=== PATIENT | male | born 1970 | race Caucasian/White ===

== ENCOUNTER 2022-09-22 16:49 | Inpatient (IN) | payer OTHER ==
[~2022-09-22] VITALS: Ht 167.6 cm; Wt 83.9 kg
[2022-09-22 16:55] VITALS: BP 181/135
--- NOTE | 2022-09-22 17:05 | NUR ---
52/M BIBA FROM HOME. PER EMS PATIENTS FAMILY CALLED 911 STATING PATIENT WAS "ROLLING ON THE GROUND" C/O ABDOMINAL PAIN. PER FAMILY AND PATIENT, HE HAS BEEN BINGE DRINKING THE PAST WEEK. DENIES N/V/D, BLOOD IN STOOLS.
[2022-09-22] MEDS ORDERED: ONDANSETRON 4 MG/2 ML VIAL IVP ONE (17:25)
[2022-09-22] MEDS ORDERED: MORPHINE SULFATE 4 MG/ML SYR IVP ONE (17:25)
[2022-09-22] MEDS ORDERED: NACL 0.9% 1,000 ML IV ONE (17:25)
[2022-09-22] MEDS ORDERED: amLODIPine 5 MG TAB PO ONE (18:15)
[2022-09-22 18:19] LABS: BASOPHILS % (AUTO) 0.4 % (0.0-2.0); EOSINOPHILS % (AUTO) 0.1 % (0.0-4.0); HEMATOCRIT 49.2 % (36-52); LYMPHOCYTES % (AUTO) 24.2 % (20.5-51.1); MEAN CORPUSCULAR HEMOGLOBIN 31 pg (27-31); MEAN CORPUSCULAR HGB CONC 35 g/dL (33-37); MEAN CORPUSCULAR VOLUME 88.8 fL (80-94); MONOCYTES # (AUTO) 0.6 K/uL (0.8-1.0); MONOCYTES % (AUTO) 6.7 % (1.7-9.3); NEUTROPHILS # (AUTO) 5.8 K/uL (1.8-7.7); NEUTROPHILS % (AUTO) 68.6 % (42.2-75.2); PLATELET COUNT (AUTO) 112 K/uL (140-450); RED BLOOD CELL COUNT(AUTO) 5.54 MIL/uL (4.20-6.10); RED CELL DISTRIBUTION WIDTH 14.2 % (11.6-13.7); WHITE BLOOD COUNT (AUTO) 8.4 K/uL (4.8-10.8)
--- NOTE | 2022-09-22 18:21 | NUR ---
AEROSPACE MEDICINE PHYSICIAN AT BEDSIDE
--- NOTE | 2022-09-22 18:24 | NUR ---
PATIENTS BP 202/123, DR. MARCUS MADE AWARE. GIVEN ORDER FOR 5MG AMLODIPINE PO.
[2022-09-22 18:30] LABS: ACETONE, SERUM NEGATIVE (NEGATIVE)
[2022-09-22 18:40] LABS: ALBUMIN 3.9 g/dL (3.4-5.0); ANION GAP 13.9 (8-16); ASPARTATE AMINOTRANSFERASE 108 U/L (15-37); CARBON DIOXIDE 26.9 mmol/L (21-32); CHLORIDE 104 mmol/L (98-107); GFR ARICAN-AMERICAN 101 mL/min (>90); GLUCOSE 173 mg/dL (74-106); LIPASE 220 U/L (73-393); MAGNESIUM 2.2 mg/dL (1.8-2.4); PHOSPHORUS 3.3 mg/dL (2.5-4.9); SODIUM SERUM 142 mmol/L (136-145); TOTAL BILIRUBIN 0.7 mg/dL (0.0-1.0); UREA NITROGEN, BLOOD 10 mg/dL (7-18)
[2022-09-22 18:44] LABS: POTASSIUM 2.8 mmol/L (3.5-5.1)
[2022-09-22] MEDS ORDERED: POTASSIUM CHLORIDE 10 MEQ TABER PO ONE (18:50)
[2022-09-22] MEDS ORDERED: ASPIRIN 81 MG TAB.CHEW PO ONE (18:50)
[2022-09-22] MEDS ORDERED: KCL 20 MEQ IN 100 mL PREMIX 100 ML IV ONE (18:50)
--- NOTE | 2022-09-22 19:05 | NUR ---
PATIENT TAKEN TO CT VIA ANNETTA
--- NOTE | 2022-09-22 19:24 | NUR ---
Pt report given to ALEJANDRINA KAUR. Transfer of care at this time.
[2022-09-22] MEDS ORDERED: NITROGLYCERIN 50 MG/D5W PREMIX 250 ML IV ONE (19:45)
[2022-09-22] MEDS ORDERED: DOCUSATE SODIUM 100 MG GELCAP PO PRN (20:35)
[2022-09-22] MEDS ORDERED: MAG SULF 2000 MG/WATER PREMIX 50 ML IV PRN (20:35)
[2022-09-22] MEDS ORDERED: ZOLPIDEM 10 MG TAB PO PRN (20:35)
[2022-09-22] MEDS ORDERED: ONDANSETRON 4 MG/2 ML VIAL IVP PRN (20:35)
[2022-09-22] MEDS ORDERED: LORazepam 2 MG/ML VIAL IVP PRN (20:35)
[2022-09-22] MEDS ORDERED: LOVENOX 1MG/KG Q12H SUBQ SCH (20:40)
[2022-09-22] MEDS ORDERED: PIPERACILLIN/TAZOBACTAM 3.375 GM in DEXTROSE 5% 50 ML IV SCH (20:40)
--- NOTE | 2022-09-22 20:44 | NUR ---
AARON SWAB OBTAINED AND SENT TO LAB
[2022-09-22] MEDS ORDERED: hydrALAZINE 20 MG/ML VIAL IVP PRN (20:45)
[2022-09-22] MEDS ORDERED: ENOXAPARIN 80 MG/0.8 ML SYR SUBQ SCH (21:40)
--- NOTE | 2022-09-22 21:45 | NUR ---
REPORT CALLED TO SHAHID BOSS
--- NOTE | 2022-09-22 21:45 | NUR ---
AMBULATED TO WITH STEADY GAIT, BACK TO BED AND MADE COMFORTABLE
--- NOTE | 2022-09-22 22:08 | NUR ---
TRANSFERED TO ICU VIA GURNEY. NTG GTT CONTINUES AT 5MCG/ MIN. ATTACHED TO METAL DRILL OPERATOR, ACCOMPANIED BY RN AND INTEGRATED PEST MANAGEMENT TECHNICIAN.
[2022-09-22 22:40] VITALS: BP 190/120
[2022-09-22 23:00] VITALS: BP 162/101
[2022-09-23] VITALS (19 sets, daily range): BP systolic 124–176; BP diastolic 75–111
[2022-09-23] MEDS ORDERED: PIPERACILLIN/TAZOBACTAM 3.375 GM VIAL IV ONE (00:27)
[2022-09-23] MEDS ORDERED: PIPERACILLIN/TAZOBACTAM 3.375 GM in DEXTROSE 5% 50 ML IV SCH (00:55)
[2022-09-23] MEDS: NITROGLYCERIN 50 MG/D5W PREMIX 250 ML IV PRN ×2 (01:15→18:27)
[2022-09-23] MEDS: MORPHINE SULFATE 2 MG/ML SYR IVP PRN ×3 (01:20→23:29)
[2022-09-23 05:56] LABS: BASOPHILS % (AUTO) 0.5 % (0.0-2.0); EOSINOPHILS % (AUTO) 0.2 % (0.0-4.0); HEMOGLOBIN 15.1 g/dL (12.0-18.0); LYMPHOCYTES # (AUTO) 1.6 K/uL (2.0-11.5); LYMPHOCYTES % (AUTO) 23.9 % (20.5-51.1); MEAN CORPUSCULAR HEMOGLOBIN 31 pg (27-31); MEAN CORPUSCULAR HGB CONC 34 g/dL (33-37); MEAN CORPUSCULAR VOLUME 89.8 fL (80-94); MONOCYTES # (AUTO) 0.5 K/uL (0.8-1.0); MONOCYTES % (AUTO) 7.9 % (1.7-9.3); NEUTROPHILS # (AUTO) 4.4 K/uL (1.8-7.7); NEUTROPHILS % (AUTO) 67.5 % (42.2-75.2); PLATELET COUNT (AUTO) 103 K/uL (140-450); RED CELL DISTRIBUTION WIDTH 13.7 % (11.6-13.7); WHITE BLOOD COUNT (AUTO) 6.6 K/uL (4.8-10.8)
[2022-09-23 05:59] LABS: ANION GAP 14.8 (8-16); CARBON DIOXIDE 24.5 mmol/L (21-32); CREATININE 0.9 mg/dL (0.6-1.3); POTASSIUM 3.3 mmol/L (3.5-5.1)
[2022-09-23] MEDS: lisinopriL 20 MG TAB PO SCH (09:06)
[2022-09-23] MEDS: ASPIRIN 81 MG TAB.CHEW PO SCH (09:06)
[2022-09-23] MEDS: PANTOPRAZOLE 40 MG INJ VIAL IVP SCH (09:06)
--- NOTE | 2022-09-23 09:11 | NUR ---
PATIENT HAS BEEN SCREENED AND CATEGORIZED MODERATE NUTRITION RISK. PATIENT WILL BE SEEN WITHIN 3-5 DAYS OF ADMISSION. /10/16 REVIEWED BY JUANCARLOS GONZALEZ RD
[2022-09-23] MEDS ORDERED: ENOXAPARIN 80 MG/0.8 ML SYR SUBQ SCH (09:30)
--- NOTE | 2022-09-23 10:16 | NUR ---
pt endorsed to dia freitas. pt stable
--- NOTE | 2022-09-23 11:05 | NUR ---
A/OX4 VSS APPEARS TO BE IN NO ACUTE DISTRESS NOTED AT THIS TIME, CONTINUE ON NITROGLYCERIN DRIP
--- NOTE | 2022-09-23 12:00 | NUR ---
C/O CHEST PAIN 8/10 FEEL VERY HEAHY ON HIS CHEST.MORPHINE SULFATE GAVE ORDER.
--- NOTE | 2022-09-23 14:38 | NUR ---
DC PLANNING ADMITTED A 52 YEAR OLD MALE PATIENT FOR COMPLAINT OF ABDOMINAL PAIN AND DIARRHEA AFTER BINGE DRINKING FOR 3-5 DAYS.CT ABDOMEN/PELVIS REQUESTED AND SHOWED SUSPECTED ENTEROCOLITIS .TROPONIN LEVEL IS HIGH SUGGESTIVE OF NSTEMI.NITROGLYCERIN DRIP WAS STARTED IN ER.CARDIO TO FOLLOW.TENTATIVE DC PLAN WHEN PATIENT RESPONDS TO TX,CM TO FOLLOW Addendum: 09/26/22 at 1248 by OPHELIA RIDER CM DC PLANNING PATIENT IS FOR TRANSFER TO HIGHER LEVEL OF CARE.SPOKE WITH DR.Y ZAPATA.PATIENT NEEDS TO HAVE A CARDIAC CATH. PATIENT ADVISED OF THE PLAN FOR TRANSFER AND ABOVE PROCEDURE.INITIALLY SCHEDULED AT 3PM BUT THERE'S NO ICU BED AT [facility]. TRANSFER TO BE DONE AT 7:30AM 09/27/22 .PROCEDURE RESCHEDULED AT 9A.ICU CHARGE NURSE INFORMED OF PLAN CHANGE. NOTIFIED BY RUTH MAHAN.NTG DRIP TO BE DISCONTINUED PRIOR TO DC .NTG PATCH TO BE APPLIED PER CARDIOLOGY.CM TO FOLLOW. Addendum: 09/26/22 at 1558 by Priscilla Wong RN DC PLANNING: PER DR BENNY Lange TO STOP THE NITRO DRIP AND TO START NITRO PATCH AT 7AM ON 09/27/22 ORDERED NITRO 0.1MG TOPICAL AND NOTIFIED ICU CHARGE NURSE NENA TO FOLLOW
[2022-09-23] MEDS ORDERED: hydrALAZINE 20 MG/ML VIAL IVP PRN (16:35)
[2022-09-23] MEDS: ACETAMINOPHEN 325 MG TAB PO PRN (16:51)
[2022-09-23] MEDS: carvediloL 12.5 MG TAB PO SCH ×2 (16:53→20:49)
--- NOTE | 2022-09-23 19:20 | NUR ---
RECEIVED ENDORSEMENT FROM PREVIOUS SHIFT RN DEBBIE THAT THIS PATIENT IS FOR TRANSFER TO HIGHER LEVEL OF CARE FOR POSSIBLE CARDIAC CATH.
--- NOTE | 2022-09-23 20:30 | NUR ---
NDT INSPECTOR BERTIN WAS INFORMED AND AWARE OF PATIENT'S PLAN TO TRANSFER FOR HIGHER LEVEL OF CARE ORDERED BY ROLLER MILL OPERATOR DR. HEWITT; ADVISED BY HS TO CALL [facility] [place] [place] [facility].
[2022-09-23] MEDS: ENOXAPARIN 80 MG/0.8 ML SYR SUBQ SCH (20:46)
--- NOTE | 2022-09-23 21:05 | NUR ---
CALLED [facility] FOR PATIENT TO TRANSFER THERE FOR POSSIBLE CARDIAC CATH.; PATIENT'S DETAILED INFORMATION GIVEN AND WAS ADVISED BY ERIKA OF [facility] TO FAXED PATIENT'S DETAILED INFORMATION.
--- NOTE | 2022-09-23 21:32 | NUR ---
PATIENT'S DETAILED INFORMATION FAXED TO [facility].
[2022-09-23] MEDS: POTASSIUM CHLORIDE 10 MEQ TABER PO PRN (23:03)
[2022-09-24] VITALS (24 sets, daily range): BP systolic 116–165; BP diastolic 65–111
[2022-09-24 05:33] LABS: BASOPHILS % (AUTO) 0.3 % (0.0-2.0); EOSINOPHILS % (AUTO) 0.3 % (0.0-4.0); HEMATOCRIT 39.9 % (36-52); HEMOGLOBIN 13.8 g/dL (12.0-18.0); LYMPHOCYTES # (AUTO) 1.6 K/uL (2.0-11.5); LYMPHOCYTES % (AUTO) 21.6 % (20.5-51.1); MEAN CORPUSCULAR HEMOGLOBIN 31 pg (27-31); MEAN CORPUSCULAR HGB CONC 35 g/dL (33-37); MEAN CORPUSCULAR VOLUME 90.2 fL (80-94); MONOCYTES # (AUTO) 0.6 K/uL (0.8-1.0); MONOCYTES % (AUTO) 8.8 % (1.7-9.3); PLATELET COUNT (AUTO) 75 K/uL (140-450); RED BLOOD CELL COUNT(AUTO) 4.43 MIL/uL (4.20-6.10); RED CELL DISTRIBUTION WIDTH 13.6 % (11.6-13.7); WHITE BLOOD COUNT (AUTO) 7.2 K/uL (4.8-10.8)
[2022-09-24 05:59] LABS: ANION GAP 7.9 (8-16); CREATININE 0.9 mg/dL (0.6-1.3); POTASSIUM 3.9 mmol/L (3.5-5.1)
--- NOTE | 2022-09-24 07:15 | NUR ---
RECEIVED BEDSIDE REPORT FROM GOODWILL AMBASSADOR RN FOR CONTINUITY OF CARE. PT A/OX4, ABLE TO FOLLOW COMMANDS. ROOM AIR. NO RESPIRATORY DISTRESS NOTED. SR ON MONITOR. 22G IV TO R FA SALINE LOCK. 20G IV TO LAC INFUSING NITROGLYCERIN DRIP AT 50 MCG/MIN AND NS TKO 5 ML/HR. NO EDEMA NOTED. NO COMPLAINTS OF CHEST PAIN AT THIS TIME. BOWEL SOUNDS ACTIVE. VOIDS FREELY TO URINAL. CONTINENT OF BOWEL AND BLADDER. MILD WEAKNESS THROUGHOUT. R SIDE DEFICIT D/T PRIOR STROKE. STANDARD PRECAUTION.
[2022-09-24] MEDS: ENOXAPARIN 80 MG/0.8 ML SYR SUBQ SCH ×2 (07:56→20:37)
[2022-09-24] MEDS: carvediloL 12.5 MG TAB PO SCH ×2 (08:07→20:37)
[2022-09-24] MEDS: ASPIRIN 81 MG TAB.CHEW PO SCH (08:07)
[2022-09-24] MEDS: PANTOPRAZOLE 40 MG INJ VIAL IVP SCH (08:08)
[2022-09-24] MEDS: ATORVASTATIN 80 MG TAB PO SCH (08:08)
[2022-09-24] MEDS: lisinopriL 20 MG TAB PO SCH ×2 (08:08→20:37)
--- NOTE | 2022-09-24 09:22 | NUR ---
SEEN AND EXAMINED BY DR. WEATHERS. NO NEW ORDERS.
[2022-09-24] MEDS: ACETAMINOPHEN 325 MG TAB PO PRN (10:32)
[2022-09-24] MEDS: NITROGLYCERIN 50 MG/D5W PREMIX 250 ML IV PRN (10:33)
--- NOTE | 2022-09-24 10:58 | NUR ---
Spoke to Rachid at [facility] center and gave updates. Per Rachid, no ICU available at this time and will continue to follow up. Phone number: .
--- NOTE | 2022-09-24 12:26 | NUR ---
Contacted Dr. Calderon regarding recent troponin level and update on transfer.
--- NOTE | 2022-09-24 19:25 | NUR ---
ENDORSED BEDSIDE REPORT TO KARYN, ELECTRICAL CONTRACTOR RN, FOR CONTINUITY OF CARE.
[2022-09-25] VITALS (24 sets, daily range): BP systolic 111–167; BP diastolic 64–109
[2022-09-25] MEDS: NITROGLYCERIN 50 MG/D5W PREMIX 250 ML IV PRN ×2 (01:10→18:18)
[2022-09-25 06:10] LABS: BASOPHILS % (AUTO) 0.3 % (0.0-2.0); EOSINOPHILS % (AUTO) 0.4 % (0.0-4.0); HEMATOCRIT 39.6 % (36-52); HEMOGLOBIN 13.6 g/dL (12.0-18.0); LYMPHOCYTES # (AUTO) 1.2 K/uL (2.0-11.5); LYMPHOCYTES % (AUTO) 16.8 % (20.5-51.1); MEAN CORPUSCULAR HEMOGLOBIN 31 pg (27-31); MEAN CORPUSCULAR HGB CONC 34 g/dL (33-37); MONOCYTES # (AUTO) 0.5 K/uL (0.8-1.0); MONOCYTES % (AUTO) 6.7 % (1.7-9.3); NEUTROPHILS # (AUTO) 5.2 K/uL (1.8-7.7); NEUTROPHILS % (AUTO) 75.8 % (42.2-75.2); PLATELET COUNT (AUTO) 75 K/uL (140-450); RED CELL DISTRIBUTION WIDTH 13.6 % (11.6-13.7); WHITE BLOOD COUNT (AUTO) 6.9 K/uL (4.8-10.8)
[2022-09-25 06:28] LABS: ANION GAP 9.9 (8-16); CARBON DIOXIDE 27.5 mmol/L (21-32); CREATININE 0.8 mg/dL (0.6-1.3); POTASSIUM 3.4 mmol/L (3.5-5.1)
[2022-09-25 06:35] LABS: PHOSPHORUS 2.8 mg/dL (2.5-4.9)
--- NOTE | 2022-09-25 07:25 | NUR ---
endorsed bedside report to nemo freitas. pt stable
--- NOTE | 2022-09-25 07:26 | NUR ---
RECEIVED BEDSIDE REPORT FROM ENLISTED AIRCREW/AERIAL OBSERVER/GUNNER RN, KARYN, FOR CONTINUITY OF CARE. PT A/OX4, ABLE TO FOLLOW COMMANDS. ROOM AIR. NO RESPIRATORY DISTRESS NOTED. SR ON MONITOR. 22G IV TO R FA SALINE LOCK. 20G IV TO LAC INFUSING NITROGLYCERIN DRIP AT 55 MCG/MIN AND NS TKO 5 ML/HR. NO EDEMA NOTED. NO COMPLAINTS OF CHEST PAIN AT THIS TIME. BOWEL SOUNDS ACTIVE. VOIDS FREELY TO URINAL. CONTINENT OF BOWEL AND BLADDER. MILD WEAKNESS THROUGHOUT. R SIDE DEFICIT D/T PRIOR STROKE. STANDARD PRECAUTION.
[2022-09-25] MEDS: lisinopriL 20 MG TAB PO SCH ×2 (08:04→20:55)
[2022-09-25] MEDS: ASPIRIN 81 MG TAB.CHEW PO SCH (08:04)
[2022-09-25] MEDS: ATORVASTATIN 80 MG TAB PO SCH (08:04)
[2022-09-25] MEDS: carvediloL 12.5 MG TAB PO SCH ×2 (08:06→20:54)
[2022-09-25] MEDS: PANTOPRAZOLE 40 MG INJ VIAL IVP SCH (08:06)
[2022-09-25] MEDS: ENOXAPARIN 80 MG/0.8 ML SYR SUBQ SCH ×2 (08:15→20:55)
[2022-09-25] MEDS: POTASSIUM CHLORIDE 10 MEQ TABER PO PRN (08:48)
--- NOTE | 2022-09-25 09:55 | NUR ---
SEEN AND EXAMINED BY DR. WEATHERS. NO NEW ORDERS.
--- NOTE | 2022-09-25 11:55 | NUR ---
Spoke to Rachid from [facility] transfer center and updated on pt status. Per Rachid, still no bed available in ICU and will give the doctor at [facility] the update on pt status.
--- NOTE | 2022-09-25 12:52 | NUR ---
Spoke to Rachid from [facility] and stated that pt has an accepting doctor named Dr. Chuckie Mariscal. Per Rachid, he is in line for a ICU bed.
--- NOTE | 2022-09-25 19:19 | NUR ---
ENDORSED BEDSIDE REPORT TO KALEN CLOTH SPREADER PHOTOGRAPH DEVELOPER, FOR CONTINUITY OF CARE.
[2022-09-26] VITALS (25 sets, daily range): BP systolic 93–167; BP diastolic 64–114
[2022-09-26 04:56] LABS: BASOPHILS % (AUTO) 0.3 % (0.0-2.0); EOSINOPHILS # (AUTO) 0.1 K/uL (0-0.4); HEMATOCRIT 39.3 % (36-52); HEMOGLOBIN 13.6 g/dL (12.0-18.0); LYMPHOCYTES # (AUTO) 1.2 K/uL (2.0-11.5); LYMPHOCYTES % (AUTO) 17.1 % (20.5-51.1); MEAN CORPUSCULAR HEMOGLOBIN 31 pg (27-31); MEAN CORPUSCULAR HGB CONC 35 g/dL (33-37); MEAN CORPUSCULAR VOLUME 90.1 fL (80-94); MONOCYTES # (AUTO) 0.5 K/uL (0.8-1.0); MONOCYTES % (AUTO) 6.4 % (1.7-9.3); NEUTROPHILS # (AUTO) 5.4 K/uL (1.8-7.7); NEUTROPHILS % (AUTO) 75.2 % (42.2-75.2); PLATELET COUNT (AUTO) 90 K/uL (140-450); RED BLOOD CELL COUNT(AUTO) 4.37 MIL/uL (4.20-6.10); RED CELL DISTRIBUTION WIDTH 13.5 % (11.6-13.7); WHITE BLOOD COUNT (AUTO) 7.1 K/uL (4.8-10.8)
[2022-09-26 05:06] LABS: ANION GAP 10.6 (8-16); CREATININE 0.9 mg/dL (0.6-1.3); POTASSIUM 3.6 mmol/L (3.5-5.1)
--- NOTE | 2022-09-26 06:42 | NUR ---
NAIN FROM [facility] CALLED AND ASKED PT. CURRENT CONDITION AND DRIPS. I REPORTED, PT. ALERT AND ORIENTED, V/S, BP 135/78, R 22, HR 72, O2 SAT 95% AND THAT PT. REMAINS ON NITROGLYCERIN DRIP. POORNIMATRAVIS STATED, AT THIS POINT SHE DOESN'T HAVE A BED YET, BUT THERE IS A RECEIVING ASSIGNED DOCTOR FOR THE PT. IN THEIR HOSPITAL. ACCORDING TO NAIN SHE WILL ENDORSE TO THE DAY SHIFT, NAME ADEEL (CONGRESSIONAL DISTRICT AIDE) TO FOLLOW UP THE BED. I RELATED THE MESSAGE TO THE PRIMARY NURSE, KALEN. WILL ENDORSE TO THE NEXT SHIFT.
--- NOTE | 2022-09-26 07:26 | NUR ---
GAVE REPORT TO AND ENDORSED CARE TO NATHANIEL KEY WHO ASSUMED TOTAL CARE OF THE PATIENT ALL QUESTIONS AND CONCERNS ANSWERED
--- NOTE | 2022-09-26 07:38 | NUR ---
GOT REPORT FROM THE NIGHT NURSE, ASSESSED PT, PT STABLE , NITRO DRIP INFUSING ORDERED.[id number]
[2022-09-26] MEDS: ASPIRIN 81 MG TAB.CHEW PO SCH (08:13)
[2022-09-26] MEDS: carvediloL 12.5 MG TAB PO SCH ×2 (08:13→20:56)
[2022-09-26] MEDS: ATORVASTATIN 80 MG TAB PO SCH (08:13)
[2022-09-26] MEDS: lisinopriL 20 MG TAB PO SCH ×2 (08:14→20:55)
[2022-09-26] MEDS: PANTOPRAZOLE 40 MG INJ VIAL IVP SCH (08:14)
[2022-09-26] MEDS: ENOXAPARIN 80 MG/0.8 ML SYR SUBQ SCH ×2 (09:00→18:34)
--- NOTE | 2022-09-26 09:13 | NUR ---
PT WAS SLEEPING AND JUST WAKE UP SAYING HE IS COLD. TEMP 98.7 ORALY. GAVE HIM EXTRA BLANKET AND PT BACK TO SLEEP NITROGLYCERINE DRIP 50MEQ IS INFUSING ORDERED .PT ATE 100% OF THE BREAKFAST AND TOOK THE MORNING MED.[id number]
[2022-09-26] MEDS: ACETAMINOPHEN 325 MG TAB PO PRN ×2 (09:21→21:14)
--- NOTE | 2022-09-26 09:23 | NUR ---
PT COMPLAINT OF HEADACHE AND GIVEN TYLENOL ORDERED.[id number]
--- NOTE | 2022-09-26 10:43 | NUR ---
MORNING BED BATH GIVEN , ALL THE BEDDING IS CHANGED NEW GOWN AND HOSPITAL SOAKS, PT AGAIN HAD SMALL BM . PT VERBALIZES THAT THE HEADACHE IS BETTER.[id number]
[2022-09-26 11:22] LABS: MAGNESIUM 1.9 mg/dL (1.8-2.4); PHOSPHORUS 3.4 mg/dL (2.5-4.9)
[2022-09-26] MEDS ORDERED: LISI20TA29 PO (12:00)
[2022-09-26] MEDS ORDERED: DOCU-299 PO (12:00)
[2022-09-26] MEDS ORDERED: LIP80 PO (12:00)
[2022-09-26] MEDS ORDERED: CARV12.52 PO (12:00)
[2022-09-26] MEDS ORDERED: ASPI81CT95 PO (12:00)
[2022-09-26] MEDS ORDERED: APR20I IVP (12:00)
[2022-09-26] MEDS ORDERED: LORazepam 2 MG/ML VIAL IVP PRN (12:10)
[2022-09-26] MEDS: LORazepam 1 MG TAB PO SCH ×2 (12:38→20:56)
[2022-09-26] MEDS: NITROGLYCERIN 50 MG/D5W PREMIX 250 ML IV PRN (12:40)
--- NOTE | 2022-09-26 12:47 | NUR ---
PT IS GOING TO GO TO [facility] TOMORROW AT 0700 TO 07.30 AM WAITING FOR BED NOW , PT WILL BE NPO AT MIDNIGHT , NOW HAVING US OF KIDNEY.[id number]
--- NOTE | 2022-09-26 13:35 | NUR ---
PT IS STABLE,HAS A AT BED SIDE VISITING HIM. THE CD IS READY FOR TOMORROW DISCHARGE. [id number]
--- NOTE | 2022-09-26 13:58 | NUR ---
PT HAD ANOTHER LOOSE MEDIUM AMOUNT STOOL FOR THE THIRD TIME.[id number]
--- NOTE | 2022-09-26 15:32 | NUR ---
09/26/22 RD INITIAL ASSESSMENT COMPLETED PLEASE REFER TO NUTRITION ASSESSMENT UNDER CARE ACTIVITY FOR ESTIMATED NUTRITIONAL NEEDS. 1. RECOMMEND ADDING [id number] TO CARDIAC DIET TOLERATED 2. PROVIDED NUTRITION EDUCATION AND HANDOUTS FOR HEART-HEALTHY DIET AND CARBOHYDRATES IN ALCOHOL 3. MONITOR PO INTAKE AND NUTRITION RELATED LAB VALUES 4. RD TO FOLLOW-UP 7 DAYS, LOW RISK REVIEWED BY JUANCARLOS GONZALEZ RD
--- NOTE | 2022-09-26 15:37 | NUR ---
PT AWAKE NO COMPLAINT BUT VERBALIZES JOSE ATIVAN RELAXED HIM AND THE LEFT CONTINUED IV [email or web address] .
--- NOTE | 2022-09-26 16:50 | NUR ---
PT IS IN WITHDRAW FROM ALCOHOL, HAD THE FOURTH BM . [email or web address]
--- NOTE | 2022-09-26 18:35 | NUR ---
LOVENOX 80MG SQ GIVEN PER DR BURNS ORDER FOR PREPARATION FOR TOMORROW PROCEDURE HE SAID NO MORE LOVENOX IN DIRECTOR CHANNEL.[id number].
--- NOTE | 2022-09-26 19:13 | NUR ---
REPORT IS GIVEN THE NIGHT NURSE, JOSH
--- NOTE | 2022-09-26 20:00 | NUR ---
REPORT RECEIVED FROM SHAHID ARMSTRONG. RECEIVED PT ON BED - AAOX4, DENIES PAIN/DISCOMFORT AT THIS TIME. ASSESSMENT DONE. LEFT SIDED WEAKNESS NOTED. ON NITRO DRIP AT 50 MCG. VIA G#20 LAC. NPO POST MIDNIGHT. NEEDS ATTENDED. SAFETY MEASURES MAINTAINED CALL LIGHT WITHIN REACH. SR. cONT TO MONITOR.
[2022-09-27] VITALS (8 sets, daily range): BP systolic 122–163; BP diastolic 67–100
[2022-09-27 05:26] LABS: BASOPHILS % (AUTO) 0.3 % (0.0-2.0); EOSINOPHILS # (AUTO) 0.1 K/uL (0-0.4); EOSINOPHILS % (AUTO) 1.3 % (0.0-4.0); HEMATOCRIT 41.2 % (36-52); HEMOGLOBIN 14.1 g/dL (12.0-18.0); LYMPHOCYTES # (AUTO) 1.2 K/uL (2.0-11.5); LYMPHOCYTES % (AUTO) 17.1 % (20.5-51.1); MEAN CORPUSCULAR HEMOGLOBIN 31 pg (27-31); MEAN CORPUSCULAR HGB CONC 34 g/dL (33-37); MONOCYTES # (AUTO) 0.5 K/uL (0.8-1.0); MONOCYTES % (AUTO) 6.8 % (1.7-9.3); NEUTROPHILS % (AUTO) 74.5 % (42.2-75.2); PLATELET COUNT (AUTO) 99 K/uL (140-450); RED BLOOD CELL COUNT(AUTO) 4.53 MIL/uL (4.20-6.10); RED CELL DISTRIBUTION WIDTH 13.7 % (11.6-13.7); WHITE BLOOD COUNT (AUTO) 6.7 K/uL (4.8-10.8)
[2022-09-27 05:43] LABS: ANION GAP 12.7 (8-16); CARBON DIOXIDE 24.1 mmol/L (21-32); CREATININE 0.9 mg/dL (0.6-1.3); POTASSIUM 3.8 mmol/L (3.5-5.1)
[2022-09-27] MEDS ORDERED: NITROGLYCERIN 0.1 MG/HR PATCH TD SCH (07:00)
--- NOTE | 2022-09-27 07:38 | NUR ---
PT PICKED [facility] BY [facility] AND LEFT THE TERI AT 0720. PT CONDITION STABLE FOR TRANSPORT. TELEPHONE REPORT GIVEN TO SAUD, ACCEPTING RN IN THE RECEIVING FACILITY.
[2022-09-27] MEDS ORDERED: FOLIC ACID 1 MG TAB PO SCH (09:00)
[2022-09-27] MEDS ORDERED: THIAMINE 100 MG TAB PO SCH (09:00)
[2022-09-27] MEDS ORDERED: MULTIVITAMIN 1 TAB PO SCH (09:00)
== END 2022-09-27 07:20 | disposition short-term general hospital (02) | DRG 281 ==
LOC: MED 16:49 → MIC 20:35
PROVIDERS: ADMIT Family Medicine; ATTEND Family Medicine
DX: I16.1 Hypertensive emergency (principal); I21.A1 Myocardial infarction type 2; R65.10 Systemic inflammatory response syndrome (SIRS) of non-infectious origin without acute organ dysfunction; F10.129 Alcohol abuse with intoxication, unspecified; E87.6 Hypokalemia; I10 Essential (primary) hypertension; Y90.9 Presence of alcohol in blood, level not specified; D69.6 Thrombocytopenia, unspecified; K52.9 Noninfective gastroenteritis and colitis, unspecified; E83.42 Hypomagnesemia; E83.51 Hypocalcemia; I25.10 Atherosclerotic heart disease of native coronary artery without angina pectoris; Z20.822 Contact with and (suspected) exposure to COVID-19
CPT/HCPCS: 36415; 71045; 76770; 80048; 80053; 82009; 83690; 83735; 83880; 84100; 84484; 85025; 87081; 87635-QW; 96361; 96365; 96366; 96375; 99291; C9113; G0482; J0360; J1650; J2060; J2270; J2405; J2543; J3475; J3480; J3490; Q0092; Q9967

== ENCOUNTER 2022-12-12 14:18 | Inpatient (IN) | payer OTHER ==
[~2022-12-12] VITALS: Ht 162.6 cm; Wt 79.4 kg
[~2022-12-12 14:18] MED LIST: APR20I IVP; ASPI81CT95 PO; CARV12.52 PO; DOCU-299 PO; LIP80 PO; LISI20TA29 PO
[2022-12-12 14:27] VITALS: BP 175/109
[2022-12-12] MEDS ORDERED: LABETALOL 20 MG/4 ML VIAL IVP ONE (14:30)
[2022-12-12 14:48] LABS: BASOPHILS % (AUTO) 0.3 % (0.0-2.0); EOSINOPHILS % (AUTO) 0.1 % (0.0-4.0); HEMOGLOBIN 14.8 g/dL (12.0-18.0); LYMPHOCYTES % (AUTO) 17.5 % (20.5-51.1); MEAN CORPUSCULAR HEMOGLOBIN 30 pg (27-31); MEAN CORPUSCULAR HGB CONC 35 g/dL (33-37); MEAN CORPUSCULAR VOLUME 86.3 fL (80-94); MONOCYTES # (AUTO) 0.4 K/uL (0.8-1.0); MONOCYTES % (AUTO) 7.3 % (1.7-9.3); NEUTROPHILS # (AUTO) 4.2 K/uL (1.8-7.7); NEUTROPHILS % (AUTO) 74.8 % (42.2-75.2); PLATELET COUNT (AUTO) 76 K/uL (140-450); RED BLOOD CELL COUNT(AUTO) 4.87 MIL/uL (4.20-6.10); RED CELL DISTRIBUTION WIDTH 13.8 % (11.6-13.7); WHITE BLOOD COUNT (AUTO) 5.7 K/uL (4.8-10.8)
--- NOTE | 2022-12-12 14:50 | NUR ---
PATIENT PRESENTS TO ED WITH RIGHT SIDE DEFICT OF PREVIOUS STROKE. PT WAS HAVING HIGH BLOOD PRESSURE. PT BLOOD PRESSURE 156/91. PTS PULSE 92. DENIES N/V/D; SKIN IS PINK/WARM/DRY; AAOX4 WITH EVEN AND STEADY GAIT; LUNGS CLEAR BL; HR EVEN AND REGULAR; PT DENIES ANY FEVER, CP, SOB; PATIENT STATES PAIN OF 8/10 AT THIS TIME; VSS; PATIENT POSITIONED FOR COMFORT; HOB ELEVATED; BEDRAILS UP X2; BED DOWN. ER MD MADE AWARE OF PT STATUS.IV PLACED.
[2022-12-12 15:00] LABS: PROTHROMBIN TIME 11.5 secs (10.8-13.4)
[2022-12-12 15:03] LABS: ALBUMIN 3.7 g/dL (3.4-5.0); ANION GAP 13.7 (8-16); CARBON DIOXIDE 27.9 mmol/L (21-32); CREATININE 0.8 mg/dL (0.6-1.3); POTASSIUM 3.6 mmol/L (3.5-5.1); TOTAL BILIRUBIN 1.2 mg/dL (0.0-1.0)
[2022-12-12] MEDS ORDERED: ASPIRIN 81 MG TAB.CHEW PO ONE (16:00)
[2022-12-12] MEDS ORDERED: DEXTROSE 50% 50 ML SYR IVP PRN (16:55)
[2022-12-12] MEDS ORDERED: ONDANSETRON 4 MG/2 ML VIAL IVP PRN (16:55)
[2022-12-12] MEDS ORDERED: HYDROcodone/APAP 5/325 MG 1 TAB TAB PO PRN ×2 (16:55)
--- NOTE | 2022-12-12 17:14 | NUR ---
DR. RAMOS AT BED SIDE WITH PT INTERPERTER.
[2022-12-12] MEDS ORDERED: ATORVASTATIN 80 MG TAB PO SCH (17:15)
--- NOTE | 2022-12-12 17:39 | NUR ---
PT TROPONIN LEVEL TRENDING DOWN 449
--- NOTE | 2022-12-12 18:46 | NUR ---
The patient's care was reviewed and supervised by [place] [facility], RN.
[2022-12-12 18:48] LABS: BARBITURATE, URINE NEGATIVE ng/ml (NEG <=200); BENZODIAZEPINE, URINE NEGATIVE ng/mL (NEG <=200); CANNABINOID, URINE NEGATIVE ng/mL (NEG <=50); COCAINE, URINE NEGATIVE ng/mL (NEG <=300); OPIATE, URINE NEGATIVE ng/mL (NEG <=2000); PHENCYCLIDINE SCREEN,URINE NEGATIVE ng/mL (NEG <=25)
[2022-12-12] MEDS ORDERED: ASPIRIN 81 MG TAB.CHEW ONE (19:15)
--- NOTE | 2022-12-12 19:30 | NUR ---
RELEASED CARE TO SHAHID PARRISH
--- NOTE | 2022-12-12 20:00 | NUR ---
Received pt up in bed in no acute distress. Breathing adequately on RA. Denies any pain/discomfort at this time.
[2022-12-12] MEDS: BLOOD GLUCOSE MONITORING 1 DEV DEV FS SCH (21:16)
[2022-12-12] MEDS: carvediloL 12.5 MG TAB PO SCH (21:24)
[2022-12-12] MEDS: lisinopriL 20 MG TAB PO SCH (21:25)
[2022-12-12] MEDS: INSULIN LISPRO SLIDING SCALE 100 UNITS/ML VIAL SUBQ PRN (21:37)
--- NOTE | 2022-12-12 23:13 | NUR ---
RETURN CALL FROM TELERUBIURO DR. GUERRERO REQUESTING TELENEURO SET UP
--- NOTE | 2022-12-13 00:06 | NUR ---
DR. GUERRERO SPEAKING WITH PT VIA REMOTE COMMUNICATION
--- NOTE | 2022-12-13 04:15 | NUR ---
Pt resting comfortably in bed. No signs of acute distress. Breathing adequately on RA.
[2022-12-13 07:00] LABS: ANION GAP 11.7 (8-16); CARBON DIOXIDE 27.7 mmol/L (21-32); CREATININE 0.9 mg/dL (0.6-1.3); POTASSIUM 3.4 mmol/L (3.5-5.1)
[2022-12-13 07:03] LABS: BASOPHILS % (AUTO) 0.3 % (0.0-2.0); EOSINOPHILS # (AUTO) 0.1 K/uL (0-0.4); HEMATOCRIT 41.1 % (36-52); HEMOGLOBIN 14.4 g/dL (12.0-18.0); LYMPHOCYTES # (AUTO) 1.2 K/uL (2.0-11.5); MEAN CORPUSCULAR HEMOGLOBIN 31 pg (27-31); MEAN CORPUSCULAR HGB CONC 35 g/dL (33-37); MEAN CORPUSCULAR VOLUME 86.8 fL (80-94); MONOCYTES # (AUTO) 0.4 K/uL (0.8-1.0); MONOCYTES % (AUTO) 7.5 % (1.7-9.3); NEUTROPHILS # (AUTO) 3.2 K/uL (1.8-7.7); NEUTROPHILS % (AUTO) 66.2 % (42.2-75.2); PLATELET COUNT (AUTO) 80 K/uL (140-450); RED BLOOD CELL COUNT(AUTO) 4.74 MIL/uL (4.20-6.10); RED CELL DISTRIBUTION WIDTH 13.9 % (11.6-13.7); WHITE BLOOD COUNT (AUTO) 4.8 K/uL (4.8-10.8)
--- NOTE | 2022-12-13 07:19 | NUR ---
Pt report given to Ratna. Transfer of care at this time. Pt in stable cond.
[2022-12-13] MEDS: BLOOD GLUCOSE MONITORING 1 DEV DEV FS SCH ×4 (08:24→21:00)
[2022-12-13] MEDS: ASPIRIN 81 MG TAB.CHEW PO SCH ×2 (08:29→09:37)
[2022-12-13] MEDS: carvediloL 12.5 MG TAB PO SCH ×2 (08:32→09:37)
[2022-12-13] MEDS: INSULIN LISPRO SLIDING SCALE 100 UNITS/ML VIAL SUBQ PRN ×4 (08:37→20:56)
--- NOTE | 2022-12-13 08:40 | NUR ---
Report given to RN OSCAR at 840. Pt medicated per providers orders. Pt has been given a meal. Pt uderstands the plan of care. Pt has been transfered to [facility] room 104 bed Placed on Tele monitor @ 930
[2022-12-13] MEDS: ENOXAPARIN 40 MG/0.4 ML SYR SUBQ SCH (09:00)
--- NOTE | 2022-12-13 09:02 | NUR ---
PATIENT HAS BEEN SCREENED AND CATEGORIZED LOW NUTRITION RISK. PATIENT WILL BE SEEN WITHIN 7 DAYS OF ADMISSION. 12/19/[address]
[2022-12-13] MEDS: lisinopriL 20 MG TAB PO SCH ×2 (09:36→20:35)
[2022-12-13 12:00] VITALS: BP 123/73
[2022-12-13 16:00] VITALS: BP 147/64
--- NOTE | 2022-12-13 19:30 | NUR ---
RECEIVED PT FROM DAY RN FOR CONTINUITY OF CARE. PT AWAKE, ALERT AND ORIENTED X 4, ON ROOM AIR. NO S/SX OF DISTRESS .PT IS STABLE. POC DISCUSSED. ALL PRECAUTIONS IN PLACE. CALL LIGHT WITHIN REACH. WILL CONTINUE TO MONITOR.
[2022-12-13 20:00] VITALS: BP 154/90
[2022-12-13] MEDS ORDERED: POTASSIUM CHLORIDE 10 MEQ TABER PO ONE (20:10)
[2022-12-13] MEDS ORDERED: ATORVASTATIN 20 MG TAB PO SCH (21:00)
--- NOTE | 2022-12-13 21:00 | NUR ---
SCHEDULED MEDICATION GIVEN. PT TOLERATED WELL. WILL CONTINUE TO MONITOR.
--- NOTE | 2022-12-14 06:17 | NUR ---
PT IS STABLE. NO ACUTE EVENTS THROUGHOUT THE NIGHT. ALL NEEDS MET.NO S/SX OF DISTRESS AT THIS MOMENT. ALL PRECAUTIONS IN PLACE. CALL LIGHT WITHIN REACH. WILL CONTINUE TO MONITOR.
[2022-12-14] MEDS: BLOOD GLUCOSE MONITORING 1 DEV DEV FS SCH (06:18)
[2022-12-14] MEDS: INSULIN LISPRO SLIDING SCALE 100 UNITS/ML VIAL SUBQ PRN (06:18)
[2022-12-14 06:48] LABS: ANION GAP 12.7 (8-16); CARBON DIOXIDE 26.9 mmol/L (21-32); CREATININE 0.8 mg/dL (0.6-1.3); POTASSIUM 3.6 mmol/L (3.5-5.1)
[2022-12-14 06:53] LABS: BASOPHILS % (AUTO) 0.4 % (0.0-2.0); EOSINOPHILS # (AUTO) 0.1 K/uL (0-0.4); EOSINOPHILS % (AUTO) 1.3 % (0.0-4.0); HEMATOCRIT 41.4 % (36-52); HEMOGLOBIN 14.5 g/dL (12.0-18.0); LYMPHOCYTES # (AUTO) 1.4 K/uL (2.0-11.5); LYMPHOCYTES % (AUTO) 27.1 % (20.5-51.1); MEAN CORPUSCULAR HEMOGLOBIN 31 pg (27-31); MEAN CORPUSCULAR HGB CONC 35 g/dL (33-37); MEAN CORPUSCULAR VOLUME 87.5 fL (80-94); MONOCYTES # (AUTO) 0.3 K/uL (0.8-1.0); MONOCYTES % (AUTO) 6.1 % (1.7-9.3); NEUTROPHILS # (AUTO) 3.4 K/uL (1.8-7.7); NEUTROPHILS % (AUTO) 65.1 % (42.2-75.2); PLATELET COUNT (AUTO) 78 K/uL (140-450); RED BLOOD CELL COUNT(AUTO) 4.73 MIL/uL (4.20-6.10); RED CELL DISTRIBUTION WIDTH 13.4 % (11.6-13.7); WHITE BLOOD COUNT (AUTO) 5.2 K/uL (4.8-10.8)
--- NOTE | 2022-12-14 07:30 | NUR ---
RECEIVED PATIENT FROM PM NURSE FOR CONTINUATION OF CARE
[2022-12-14 08:00] VITALS: BP 144/81
--- NOTE | 2022-12-14 08:56 | NUR ---
FNS CONSULT HAS BEEN RECEIVED FOR NEW ONSET OF DIABETES ON 12/14/22. PATIENT HAS BEEN RE-SCREENED HIGH RISK AND WILL BE SEEN WITHIN 1-2 DAYS OF RECEIVING THE FNS CONSULT. JED MEJIA RD
[2022-12-14] MEDS: ENOXAPARIN 40 MG/0.4 ML SYR SUBQ SCH (09:00)
[2022-12-14] MEDS: carvediloL 12.5 MG TAB PO SCH (09:20)
[2022-12-14] MEDS: ASPIRIN 81 MG TAB.CHEW PO SCH (09:20)
[2022-12-14] MEDS: lisinopriL 20 MG TAB PO SCH (09:21)
[2022-12-14 10:29] VITALS: BP 144/81
--- NOTE | 2022-12-14 12:28 | NUR ---
ALMAZ PLANNING A 52 Y.O. PATIENT ADMITTED FOR COMPLAINTS OF GENERALIZED WEAKNESS.HX OF HTN,PREVIOUS CVA .WITH ELEVATED TROPONIN BUT TRENDING DOWN. FOLLOWING. PATIENT WAS DISCHARGED TODAY, CLEARED BY CARDIO.ORDER TO RESUME HOME HEALTH VISIT WITH DILEEP AT INITIATED.
== END 2022-12-14 11:15 | disposition home health service (06) | DRG 281 ==
LOC: MED 14:18 → MMU 16:55 → MTU 12-13 06:05
PROVIDERS: ADMIT Internal Medicine; ATTEND Internal Medicine
DX: I16.1 Hypertensive emergency (principal); I21.A1 Myocardial infarction type 2; I69.351 Hemiplegia and hemiparesis following cerebral infarction affecting right dominant side; I10 Essential (primary) hypertension; D69.6 Thrombocytopenia, unspecified
CPT/HCPCS: 36415; 70450; 71045; 80048; 80053; 80305; 82948; 83735; 83880; 84484; 85025; 85610; 85730; 87081; 93005; 99285; J1650; J1815; J3490; Q0092; Q9967

== ENCOUNTER 2022-12-31 20:31 | Inpatient (IN) | payer OTHER ==
[~2022-12-31] VITALS: Ht 162.6 cm; Wt 72.6 kg
[2022-12-31 20:31] VITALS: BP 139/92; PULSE 88; RESP 17; TEMP 97.7; O2SAT 97
--- NOTE | 2022-12-31 20:41 | NUR ---
PT ALIVIA ALS. TAKEN TO BED 7
--- NOTE | 2022-12-31 21:01 | NUR ---
Dr. Rodríguez examining patient.
--- NOTE | 2022-12-31 21:02 | NUR ---
URINE GIVEN TO LAB.
[2022-12-31 21:09] LABS: BASOPHILS % (AUTO) 0.7 % (0.0-2.0); EOSINOPHILS % (AUTO) 0.2 % (0.0-4.0); HEMOGLOBIN 13.7 g/dL (12.0-18.0); LYMPHOCYTES # (AUTO) 1.5 K/uL (2.0-11.5); LYMPHOCYTES % (AUTO) 27.4 % (20.5-51.1); MEAN CORPUSCULAR HEMOGLOBIN 30 pg (27-31); MEAN CORPUSCULAR HGB CONC 35 g/dL (33-37); MEAN CORPUSCULAR VOLUME 86.3 fL (80-94); MONOCYTES # (AUTO) 0.4 K/uL (0.8-1.0); MONOCYTES % (AUTO) 7.2 % (1.7-9.3); NEUTROPHILS # (AUTO) 3.5 K/uL (1.8-7.7); NEUTROPHILS % (AUTO) 64.5 % (42.2-75.2); PLATELET COUNT (AUTO) 110 K/uL (140-450); RED BLOOD CELL COUNT(AUTO) 4.52 MIL/uL (4.20-6.10); RED CELL DISTRIBUTION WIDTH 14.1 % (11.6-13.7); WHITE BLOOD COUNT (AUTO) 5.5 K/uL (4.8-10.8)
[2022-12-31 21:25] LABS: ALBUMIN 3.5 g/dL (3.4-5.0); ANION GAP 12.7 (8-16); ASPARTATE AMINOTRANSFERASE 84 U/L (15-37); CARBON DIOXIDE 26.8 mmol/L (21-32); CHLORIDE 105 mmol/L (98-107); CREATININE 0.8 mg/dL (0.6-1.3); GFR ARICAN-AMERICAN 131 mL/min (>90); GLUCOSE 184 mg/dL (74-106); POTASSIUM 3.5 mmol/L (3.5-5.1); SODIUM SERUM 141 mmol/L (136-145); TOTAL BILIRUBIN 0.7 mg/dL (0.0-1.0); UREA NITROGEN, BLOOD 5 mg/dL (7-18)
[2022-12-31] MEDS ORDERED: ENOXAPARIN 80 MG/0.8 ML SYR SUBQ ONE (21:35)
[2022-12-31] MEDS ORDERED: NITROGLYCERIN 0.4 MG TAB SL PRN (22:05)
--- NOTE | 2022-12-31 23:05 | NUR ---
MED RECONCILE COMPLETED
--- NOTE | 2022-12-31 23:15 | NUR ---
Patient will be admitted to care of [facility]. Admited to TELE. Will go to [id number]. Belongings list completed. Report to MARILEE KEY.
[2022-12-31 23:20] VITALS: PULSE 83; RESP 18; O2SAT 94
--- NOTE | 2022-12-31 23:20 | NUR ---
PT WAS TRANSPORTED FROM ER VIA GURNEY. PT IS AAOX4 FRISIAN SPEAKER. PT IS AAOX4 ON RA SATING 94%. PT CAME IN WITH COMPLAINS OF CHEST PAIN AND DENIES ANY CHEST PAIN AT THIS TIME. PT HAS RIGHT SIDED WEAKNESS FROM CVA. PT STATES HE IS ABLE TO AMBULATE. USES SON AT HOME. PT HAS LEFT FOREARM 18 GAUGE SALINE LOCK. EDUCATED PT FISHER HAND LINE LIGHT SYSTEM AND ROOM ENVIRONMENT. POC DISCUSS. WILL CONTINUE TO MONITOR THE PT.
[2022-12-31 23:30] VITALS: BP 144/89; PULSE 83; RESP 18; TEMP 98.3; O2SAT 94
[2023-01-01] VITALS: PULSE 75
[2023-01-01 04:00] VITALS: BP 155/94; PULSE 71; PULSE 87; RESP 18; TEMP 98.5; O2SAT 96
--- NOTE | 2023-01-01 04:51 | NUR ---
OBSERVED PT. PT IS SLEEPING COMFORTABLY IN BED. NOT IN ANY DISTRESS. BREATHING EVEN AND UNLABORED. CALL LIGHT WITHIN REACH. WILL CONTINUE TO MONITOR THE PT.
--- NOTE | 2023-01-01 07:08 | NUR ---
ENDORSED PT TO DAY SHIFT RN FOR CONTINUITY OF CARE. PT IS STABLE.
--- NOTE | 2023-01-01 07:30 | NUR ---
RECEIVED REPORT FROM PM NURSE. PT IS RESTING IN BED, AAO x4, DENIES PAIN/DISCOMFORT AT THIS TIME. RESPIRATIONS EVEN AND UL ON RA. CALL LIGHT IN REACH, BED LOCKED, SIDE RAILS x2. PT INSTRUCTED TO CALL FOR HELP BEFORE GETTING UP. SAFETY MEASURES IN PLACE.
[2023-01-01 08:00] VITALS: BP 158/93; PULSE 80; PULSE 97; RESP 20; TEMP 98.2; O2SAT 97
[2023-01-01] MEDS ORDERED: MAG SULF 2000 MG/WATER PREMIX 50 ML IV PRN (08:00)
[2023-01-01] MEDS ORDERED: ATORVASTATIN 20 MG TAB PO SCH ×2 (09:00)
[2023-01-01] MEDS ORDERED: ASPIRIN 81 MG TAB.CHEW PO SCH (09:00)
[2023-01-01] MEDS: ASPIRIN 81 MG TAB.CHEW PO SCH (09:07)
--- NOTE | 2023-01-01 09:07 | NUR ---
PATIENT HAS BEEN SCREENED AND CATEGORIZED MODERATE NUTRITION RISK. PATIENT WILL BE SEEN WITHIN 3-5 DAYS OF ADMISSION. 12/31/22-01/05/[address]
--- NOTE | 2023-01-01 11:30 | NUR ---
DR. MURRAY AWARE OF V/S AND MED REC WITH HOME BP MEDS. CURRENT BP 148/90, HR 83. STATES TO CONTINUE HOME BP MEDICATIONS.
[2023-01-01] MEDS ORDERED: DOCUSATE SODIUM 100 MG GELCAP PO PRN ×2 (11:40→12:00)
[2023-01-01] MEDS ORDERED: hydrALAZINE 20 MG/ML VIAL IVP PRN (11:40)
[2023-01-01 12:00] VITALS: BP 148/90; PULSE 78; PULSE 83; RESP 20; TEMP 97.6; O2SAT 97
[2023-01-01] MEDS ORDERED: LORazepam 2 MG/ML VIAL IVP PRN (12:00)
[2023-01-01] MEDS ORDERED: MORPHINE SULFATE 2 MG/ML SYR IVP PRN (12:00)
[2023-01-01] MEDS ORDERED: POTASSIUM CHLORIDE 10 MEQ TABER PO PRN (12:00)
[2023-01-01] MEDS ORDERED: ZOLPIDEM 10 MG TAB PO PRN (12:00)
[2023-01-01] MEDS ORDERED: ONDANSETRON 4 MG/2 ML VIAL IVP PRN (12:00)
[2023-01-01] MEDS ORDERED: ACETAMINOPHEN 325 MG TAB PO PRN (12:00)
--- NOTE | 2023-01-01 14:06 | NUR ---
PATIENT RESTING IN BED, RESPIRATIONS EVEN AND UL ON RA. DENIES PAIN/DISCOMFORT. ALL NEEDS MET. CALL LIGHT IN REACH, SAFETY MEASURES IN PLACE.
--- NOTE | 2023-01-01 15:30 | NUR ---
RECIEVED REPORT FROM AM REGISTRY NURSE FOR TRANSFER OF PATIENT CARE. PATIENT SEEN. AWAKE STABLE. PATIENT VERBALIZES NO CONCERNS OF THE MOMENT.
[2023-01-01 16:00] VITALS: BP 142/95; PULSE 87; PULSE 90; RESP 20; TEMP 98; O2SAT 97
--- NOTE | 2023-01-01 19:46 | NUR ---
ENDORSED PATIENT TO PM NURSE FOR CONTINUATION OF CARE.
--- NOTE | 2023-01-01 19:47 | NUR ---
RECEIVED ENDORSEMENT FROM OSCAR RN, PATIENT WAS IN BED WATCHING TV. NURSING ASKED IF HE PREFERS THE VOYCE TO TRANSLATE OR DOES HE WANT TO COMMUNICATE WITH HIS OWN UNDERSTANDING OF HONDURAN. PATIENT PREFERS TO SPEAK HONDURAN AND USE STAFF FOR TRANSLATION. PATIENT INFORMED NURSING THAT HE HAS MINIMAL PAIN TO HIS CHEST. NURSING WILL REVIEW HIS MEDICATION RECORDS AND GIVE THE APPROPRIATE PAIN MANAGEMENT WITH VITAL SIGNS IN APPROPRIATE RANGE. NO NOTED RESPIRATORY DISTRESS. SIDE RAILS UP X 2 FOR SAFETY AND ADJUSTMENT. CALL LIGHT WITHIN REACH FOR ALL ASSISTANCE. [email or web address]
--- NOTE | 2023-01-01 19:48 | NUR ---
Patient's Plan of Care was discussed and reviewed with VINCENT: NACHO
[2023-01-01 20:00] VITALS: BP 169/106; PULSE 78; PULSE 83; RESP 20; TEMP 97.4; O2SAT 96
[2023-01-01] MEDS: lisinopriL 20 MG TAB PO SCH (20:55)
[2023-01-01] MEDS: carvediloL 12.5 MG TAB PO SCH (20:56)
--- NOTE | 2023-01-01 22:59 | NUR ---
PATIENT WAS ABLE TO TAKE MEDICATION WITHOUT INCIDENT. NO NOTED SIDE EFFECTS OR COMPLICATIONS. NURSING ENSURED CALL LIGHT WITHIN REACH. NO COMPLAINTS OF PAIN/DISCOMFORT. NO NOTED RESPIRATORY DISTRESS. [email or web address]
[2023-01-02] VITALS: BP 126/83; PULSE 55; PULSE 56; RESP 18; TEMP 96.7; O2SAT 96
--- NOTE | 2023-01-02 02:00 | NUR ---
PATIENT NOTED IN BED ASLEEP WITHOUT INCIDENT. CHEST RISING AND FALLING WITHOUT DISTRESS. NO S/S OF PAIN/DISCOMFORT AT THIS TIME. SIDE RAILS UP X 2 FOR SAFETY. CALL LIGHT WITHIN REACH. [email or web address]
[2023-01-02 04:00] VITALS: BP 135/82; PULSE 53; PULSE 56; RESP 17; TEMP 97.5; O2SAT 96
--- NOTE | 2023-01-02 04:39 | NUR ---
PATIENT NOTED IN BED ASLEEP. PATIENT IS EASILY AWAKE WHEN NAME IS CALLED. NO COMPLAINTS OF PAIN/DISCOMFORT. PATIENT CHEST IS RISING AND FALLING WITHOUT INCIDENT. SIDE RAILS UP X 2. CALL LIGHT WITHIN REACH FOR ASSISTANCE. [email or web address]
[2023-01-02 05:33] LABS: ANION GAP 10.3 (8-16); CARBON DIOXIDE 27.8 mmol/L (21-32); CREATININE 0.8 mg/dL (0.6-1.3); POTASSIUM 3.1 mmol/L (3.5-5.1)
[2023-01-02 05:34] LABS: BASOPHILS % (AUTO) 0.8 % (0.0-2.0); EOSINOPHILS # (AUTO) 0.1 K/uL (0-0.4); EOSINOPHILS % (AUTO) 1.7 % (0.0-4.0); HEMATOCRIT 39.6 % (36-52); HEMOGLOBIN 13.9 g/dL (12.0-18.0); LYMPHOCYTES # (AUTO) 1.3 K/uL (2.0-11.5); LYMPHOCYTES % (AUTO) 29.4 % (20.5-51.1); MEAN CORPUSCULAR HEMOGLOBIN 30 pg (27-31); MEAN CORPUSCULAR HGB CONC 35 g/dL (33-37); MONOCYTES # (AUTO) 0.3 K/uL (0.8-1.0); MONOCYTES % (AUTO) 7.5 % (1.7-9.3); NEUTROPHILS # (AUTO) 2.6 K/uL (1.8-7.7); NEUTROPHILS % (AUTO) 60.6 % (42.2-75.2); PLATELET COUNT (AUTO) 89 K/uL (140-450); RED CELL DISTRIBUTION WIDTH 14.3 % (11.6-13.7); WHITE BLOOD COUNT (AUTO) 4.3 K/uL (4.8-10.8)
--- NOTE | 2023-01-02 07:41 | NUR ---
ENDORSED CARE TO ARTURO KEY, PATIENT WAS STABLE DURING SHIFT REPORT. SIDE RAILS UP X 2 AND CALL LIGHT WITHIN REACH FOR ALL ASSISTANCE. [email or web address]
[2023-01-02 08:00] VITALS: BP 133/82; PULSE 54; PULSE 68; RESP 18; TEMP 97.4; O2SAT 98
--- NOTE | 2023-01-02 08:20 | NUR ---
RECEIVED REPORT FROM CHARGE NURSE FOR CONTINUITY OF CARE. PT STABLE AT THIS TIME.
[2023-01-02] MEDS ORDERED: ATORVASTATIN 80 MG TAB PO SCH (09:00)
[2023-01-02] MEDS ORDERED: ASPIRIN 81 MG TAB.CHEW PO SCH (09:00)
[2023-01-02] MEDS: NITROGLYCERIN 0.4 MG TAB SL PRN ×2 (09:16→09:26)
[2023-01-02] MEDS: ASPIRIN 81 MG TAB.CHEW PO SCH (09:20)
[2023-01-02] MEDS: carvediloL 12.5 MG TAB PO SCH (09:21)
[2023-01-02] MEDS: lisinopriL 20 MG TAB PO SCH (09:21)
[2023-01-02] MEDS ORDERED: MAG SULF 2000 MG/WATER PREMIX 50 ML IV PRN (10:45)
[2023-01-02] MEDS ORDERED: POTASSIUM CHLORIDE 10 MEQ TABER PO PRN (10:45)
== END 2023-01-02 16:00 | disposition home or self-care (01) | DRG 313 ==
LOC: MED 20:31 → MTU 21:57 → MED 22:15 → MTU 22:15 → MED 22:19 → MTU 22:25
PROVIDERS: ADMIT Family Medicine; ATTEND Family Medicine
DX: R07.89 Other chest pain (principal); I69.351 Hemiplegia and hemiparesis following cerebral infarction affecting right dominant side; D69.6 Thrombocytopenia, unspecified; I10 Essential (primary) hypertension; F10.129 Alcohol abuse with intoxication, unspecified; R74.01 Elevation of levels of liver transaminase levels; E78.5 Hyperlipidemia, unspecified; E11.9 Type 2 diabetes mellitus without complications; Z79.899 Other long term (current) drug therapy; Z79.82 Long term (current) use of aspirin; Y90.4 Blood alcohol level of 80-99 mg/100 ml
CPT/HCPCS: 36415; 80048; 80053; 83036; 83735; 84484; 85025; 87081; 93005; 96372; 99285; G0482; J1644; J1650; J2270; J2405

== ENCOUNTER 2023-04-12 03:50 | Inpatient (IN) | payer OTHER ==
[~2023-04-12] VITALS: Ht 162.6 cm; Wt 86.2 kg
[2023-04-12 03:56] VITALS: BP 182/100; PULSE 81; RESP 16; TEMP 97.4; O2SAT 97
[2023-04-12 04:54] LABS: ANION GAP 15.8 (8-16); BASOPHILS % (AUTO) 0.3 % (0.0-2.0); CALCIUM 8.2 mg/dL (8.5-10.1); CARBON DIOXIDE 26.5 mmol/L (21-32); CREATININE 0.9 mg/dL (0.6-1.3); EOSINOPHILS % (AUTO) 0.3 % (0.0-4.0); HEMATOCRIT 42.7 % (36-52); HEMOGLOBIN 14.6 g/dL (12.0-18.0); LYMPHOCYTES # (AUTO) 1.4 K/uL (2.0-11.5); LYMPHOCYTES % (AUTO) 22.9 % (20.5-51.1); MEAN CORPUSCULAR HEMOGLOBIN 30 pg (27-31); MEAN CORPUSCULAR HGB CONC 34 g/dL (33-37); MEAN CORPUSCULAR VOLUME 87.8 fL (80-94); MONOCYTES # (AUTO) 0.6 K/uL (0.8-1.0); MONOCYTES % (AUTO) 9.1 % (1.7-9.3); NEUTROPHILS # (AUTO) 4.1 K/uL (1.8-7.7); NEUTROPHILS % (AUTO) 67.4 % (42.2-75.2); PLATELET COUNT (AUTO) 109 K/uL (140-450); POTASSIUM 3.3 mmol/L (3.5-5.1); RED BLOOD CELL COUNT(AUTO) 4.87 MIL/uL (4.20-6.10); RED CELL DISTRIBUTION WIDTH 14.3 % (11.6-13.7); WHITE BLOOD COUNT (AUTO) 6.2 K/uL (4.8-10.8)
[2023-04-12 05:09] LABS: ALBUMIN 3.9 g/dL (3.4-5.0); ANION GAP 18.4 (8-16); CALCIUM 8.1 mg/dL (8.5-10.1); CREATININE 0.9 mg/dL (0.6-1.3); POTASSIUM 3.4 mmol/L (3.5-5.1); TOTAL BILIRUBIN 0.7 mg/dL (0.0-1.0); TOTAL PROTEIN, SERUM 7.8 g/dL (6.4-8.2)
[2023-04-12] MEDS ORDERED: DICYCLOMINE HCL LIQUID 20 MG, ALUMINUM HYD/MAG/SIMETHICONE 30 ML, LIDOCAINE VISCOUS 2% ... PO ONE ×3 (05:10)
[2023-04-12] MEDS ORDERED: ALUMINUM HYD/MAG/SIMETHICONE 30 ML UDC ONE (05:14)
[2023-04-12] MEDS ORDERED: DICYCLOMINE HCL LIQUID 10 MG/5 ML UDC ONE (05:14)
[2023-04-12] MEDS ORDERED: ONDANSETRON 4 MG/2 ML VIAL IVP PRN (06:55)
[2023-04-12] MEDS ORDERED: MAG SULF 2000 MG/WATER PREMIX 50 ML IV PRN (06:55)
[2023-04-12] MEDS ORDERED: DOCUSATE SODIUM 100 MG GELCAP PO PRN ×2 (06:55)
[2023-04-12] MEDS ORDERED: ZOLPIDEM 10 MG TAB PO PRN (06:55)
[2023-04-12] MEDS: NACL 0.9% 1,000 ML IV SCH ×3 (06:55→22:35)
[2023-04-12] MEDS ORDERED: MORPHINE SULFATE 2 MG/ML SYR IVP PRN (06:55)
[2023-04-12] MEDS ORDERED: LORazepam 2 MG/ML VIAL IVP PRN (06:55)
[2023-04-12] MEDS ORDERED: ACETAMINOPHEN 325 MG TAB PO PRN (06:55)
[2023-04-12] MEDS ORDERED: POTASSIUM CHLORIDE 10 MEQ TABER PO PRN (06:55)
[2023-04-12 07:30] VITALS: O2SAT 97
[2023-04-12] MEDS ORDERED: INSULIN REGULAR, HUMAN 100 UNIT/ML VIAL SUBQ SCH (07:30)
[2023-04-12] MEDS ORDERED: DEXTROSE 50% 50 ML SYR IVP PRN (08:15)
[2023-04-12] MEDS: ASPIRIN 81 MG TAB.CHEW PO SCH (09:02)
[2023-04-12] MEDS: carvediloL 12.5 MG TAB PO SCH ×2 (09:02→21:02)
[2023-04-12] MEDS: ATORVASTATIN 80 MG TAB PO SCH (09:03)
[2023-04-12] MEDS: lisinopriL 20 MG TAB PO SCH ×2 (09:03→21:02)
[2023-04-12] MEDS: ENOXAPARIN 40 MG/0.4 ML SYR SUBQ SCH (09:04)
[2023-04-12] MEDS: BLOOD GLUCOSE MONITORING 1 DEV DEV FS SCH ×3 (12:11→21:01)
[2023-04-12] MEDS: INSULIN LISPRO SLIDING SCALE 100 UNITS/ML VIAL SUBQ PRN ×2 (12:12→17:06)
[2023-04-12 17:47] VITALS: PULSE 60; RESP 18; O2SAT 60
[2023-04-12 18:12] VITALS: PULSE 60; RESP 18; O2SAT 60
[2023-04-12 20:00] VITALS: BP 162/85; PULSE 60; PULSE 67; RESP 18; TEMP 98.1; O2SAT 93
[2023-04-13] VITALS: BP 155/96; PULSE 50; PULSE 61; RESP 18; TEMP 96.6; O2SAT 96
[2023-04-13 04:00] VITALS: BP 162/89; PULSE 48; PULSE 53; RESP 18; TEMP 97.5; O2SAT 96
[2023-04-13 05:21] LABS: BASOPHILS % (AUTO) 0.4 % (0.0-2.0); EOSINOPHILS % (AUTO) 0.5 % (0.0-4.0); HEMATOCRIT 39.2 % (36-52); HEMOGLOBIN 13.5 g/dL (12.0-18.0); LYMPHOCYTES # (AUTO) 1.2 K/uL (2.0-11.5); LYMPHOCYTES % (AUTO) 31.6 % (20.5-51.1); MEAN CORPUSCULAR HEMOGLOBIN 30 pg (27-31); MEAN CORPUSCULAR HGB CONC 34 g/dL (33-37); MEAN CORPUSCULAR VOLUME 88.3 fL (80-94); MONOCYTES # (AUTO) 0.4 K/uL (0.8-1.0); MONOCYTES % (AUTO) 9.4 % (1.7-9.3); NEUTROPHILS # (AUTO) 2.2 K/uL (1.8-7.7); NEUTROPHILS % (AUTO) 58.1 % (42.2-75.2); PLATELET COUNT (AUTO) 86 K/uL (140-450); RED BLOOD CELL COUNT(AUTO) 4.44 MIL/uL (4.20-6.10); RED CELL DISTRIBUTION WIDTH 14.3 % (11.6-13.7); WHITE BLOOD COUNT (AUTO) 3.8 K/uL (4.8-10.8)
[2023-04-13 06:01] LABS: ANION GAP 13.5 (8-16); CALCIUM 7.9 mg/dL (8.5-10.1); CARBON DIOXIDE 25.5 mmol/L (21-32); CREATININE 0.9 mg/dL (0.6-1.3)
[2023-04-13] MEDS: BLOOD GLUCOSE MONITORING 1 DEV DEV FS SCH ×2 (06:47→12:10)
[2023-04-13] MEDS: INSULIN LISPRO SLIDING SCALE 100 UNITS/ML VIAL SUBQ PRN (06:49)
[2023-04-13 08:00] VITALS: BP 156/92; PULSE 60; PULSE 65; RESP 18; TEMP 97; O2SAT 96
[2023-04-13 08:56] VITALS: PULSE 60; RESP 18; O2SAT 96
[2023-04-13] MEDS: ENOXAPARIN 40 MG/0.4 ML SYR SUBQ SCH (09:00)
[2023-04-13] MEDS: carvediloL 12.5 MG TAB PO SCH (09:04)
[2023-04-13] MEDS: lisinopriL 20 MG TAB PO SCH (09:05)
[2023-04-13] MEDS: ATORVASTATIN 80 MG TAB PO SCH (09:05)
[2023-04-13] MEDS: ASPIRIN 81 MG TAB.CHEW PO SCH (09:05)
[2023-04-13] MEDS ORDERED: METF-346 PO (09:58)
[2023-04-13] MEDS: NACL 0.9% 1,000 ML IV SCH (11:31)
== END 2023-04-13 12:55 | disposition home health service (06) | DRG 282 ==
LOC: MED 03:50 → MTU 06:37
PROVIDERS: ADMIT General Practice; ATTEND General Practice
DX: I16.0 Hypertensive urgency (principal); I21.A1 Myocardial infarction type 2; E11.9 Type 2 diabetes mellitus without complications; E78.5 Hyperlipidemia, unspecified; D69.6 Thrombocytopenia, unspecified; E87.6 Hypokalemia; R74.01 Elevation of levels of liver transaminase levels; F10.10 Alcohol abuse, uncomplicated; I10 Essential (primary) hypertension; Z79.01 Long term (current) use of anticoagulants; Z86.73 Personal history of transient ischemic attack (TIA), and cerebral infarction without residual deficits
CPT/HCPCS: 36415; 71045; 80048; 80053; 82948; 83036; 83735; 83880; 84484; 85025; 87081; 93005; 99291; J1644; J1650; J1815